=== PATIENT | female | born 2000 | race Caucasian/White ===

== ENCOUNTER 2020-07-27 12:26 | Emergency (ER) | payer OTHER ==
[~2020-07-27] VITALS: Ht 165.1 cm; Wt 63.5 kg
[2020-07-27 13:03] LABS: ABSOLUTE NEUTROPHILS 8.7 thou/uL (1.4-8.2); BASOPHILS 0.4 % (0.0-2.0); HEMATOCRIT 37.2 % (37.0-47.0); HEMOGLOBIN 12.5 gm/dL (12.0-15.0); LYMPHOCYTES 14.9 % (24.0-44.0); MCH 29.6 pg (26.0-34.0); MCHC 33.7 g/dL (28.0-37.0); MCV 87.7 fL (80.0-100.0); MONOCYTES 8.3 % (1.0-8.0); PLATELET COUNT 464 thou/uL (150-400); POLYS 76.4 % (36.0-66.0); RBC 4.24 mil/uL (4.20-5.00); RDW 13.9 % (10.5-14.5); WBC 11.5 thou/uL (4.0-11.0)
[2020-07-27 13:11] LABS: CALCIUM 9.2 mg/dL (8.5-10.1); CREATININE 1.1 mg/dL (0.6-1.0); POTASSIUM 3.1 mmol/L (3.5-5.1)
[2020-07-27 13:17] LABS: ALBUMIN 3.9 g/dL (3.4-5.0); TOTAL BILIRUBIN 0.4 mg/dL (0.2-1.0); TOTAL PROTEIN 7.6 g/dL (6.4-8.2)
[2020-07-27 16:30] LABS: URINE BLOOD TRACE (Negative); URINE CLARITY CLEAR; URINE COLOR YELLOW; URINE GLUCOSE-RANDOM* NEGATIVE (Negative); URINE KETONES TRACE (Negative); URINE LEUKOCYTES-REFLEX NEGATIVE (Negative); URINE NITRITE-REFLEX NEGATIVE (Negative); URINE PROTEIN (DIPSTICK) 1+ (Negative); URINE SPECIFIC GRAVITY 1.025 (1.005-1.035)
[2020-07-27 16:32] LABS: ICTOTEST (BILI CONFIRMATORY) Negative (Negative); URINE BILIRUBIN NEGATIVE (Negative)
[2020-07-27 16:37] LABS: MUCUS >6 Heavy strn/LPF (None Seen); SQUAMOUS >10 Many /LPF (0-3)
[2020-07-27 16:41] LABS: CASTS None Seen /LPF (None Seen); URINE WBC-REFLEX 0-5 Rare /HPF (0-5)
[2020-07-27 16:42] LABS: BACTERIA-REFLEX None Seen /HPF (None Seen); CALCIUM OXALATE 0-3 Few /LPF (None Seen); URINE RBC 3-10 Few /HPF (NONE SEEN)
[2020-07-27 17:05] VITALS: BP 124/85
== END 2020-07-27 17:05 | disposition home or self-care (01) ==
LOC: ER 12:26
PROVIDERS: Emergency Medicine
DX: R10.817 Generalized abdominal tenderness (principal); R11.2 Nausea with vomiting, unspecified

== ENCOUNTER 2020-07-28 10:26 | Emergency (ER) | payer OTHER ==
[~2020-07-28] VITALS: Ht 165.1 cm; Wt 63.5 kg
[2020-07-28 12:02] VITALS: BP 157/89
== END 2020-07-28 11:10 | disposition left against medical advice (07) ==
LOC: ER 10:26
DX: R10.9 Unspecified abdominal pain (principal); R11.2 Nausea with vomiting, unspecified; F17.210 Nicotine dependence, cigarettes, uncomplicated

== ENCOUNTER 2020-07-30 17:08 | Emergency (ER) | payer OTHER ==
[~2020-07-30] VITALS: Ht 165.1 cm; Wt 63.5 kg
[2020-07-30 17:11] VITALS: BP 151/97
== END 2020-07-30 17:29 | disposition home or self-care (01) ==
LOC: ER 17:08
DX: R10.84 Generalized abdominal pain (principal)